=== PATIENT | female | born 2000 | race Caucasian/White ===

== ENCOUNTER 2020-11-08 15:53 | Emergency (ER) | payer OTHER ==
[2020-11-08 16:23] LABS: BASOPHILS % (AUTO) 0.4 %; EOSINOPHILS # (AUTO) 0.1 10^3/uL (0.0-0.7); EOSINOPHILS % (AUTO) 1.1 %; HCT - HEMATOCRIT 36.3 % (37.0-47.0); HGB - HEMOGLOBIN 12.6 g/dL (12.0-16.0); LYMPHOCYTES % (AUTO) 25.1 %; MEAN CORPUSCULAR HEMOGLOBIN 31.2 pg (27.0-31.0); MEAN CORPUSCULAR HGB CONC 34.7 g/dL (32.0-36.0); MEAN CORPUSCULAR VOLUME 89.9 fL (81.0-99.0); MEAN PLATELET VOLUME 9.3 fL (7.9-10.8); MONOCYTES # (AUTO) 0.5 10^3/uL (0.0-1.0); MONOCYTES % (AUTO) 5.8 %; NEUTROPHILS # (AUTO) 5.5 10^3/uL (1.5-6.6); NEUTROPHILS % (AUTO) 67.4 %; PLT - PLATELET COUNT 339 10^3/uL (130-450); RED BLOOD COUNT 4.04 10^6/uL (4.20-5.40); RED CELL DISTRIBUTION WIDTH 11.9 % (12.0-15.0); WHITE BLOOD COUNT 8.1 x10^3/uL (4.8-10.8)
[2020-11-08 16:33] LABS: ALBUMIN 4.6 g/dL (3.2-5.5); ALBUMIN/GLOBULIN RATIO 1.7 (1.0-2.2); BILIRUBIN,TOTAL 0.7 mg/dL (0.2-1.0); CALCIUM 9.5 mg/dL (8.5-10.3); CREATININE 0.7 mg/dL (0.4-1.0); POTASSIUM 4.1 mmol/L (3.5-5.0); TOTAL PROTEIN 7.3 g/dL (6.7-8.2)
--- NOTE | 2020-11-08 16:40 | XRAY Report ---
PROCEDURE: Chest 1 View X-Ray INDICATIONS: Chest pain TECHNIQUE: One view of the chest was acquired. COMPARISON: None FINDINGS: Surgical changes and devices: None. Lungs and pleura: No pleural effusions or pneumothorax. Lungs are clear. Mediastinum: Mediastinal contours appear normal. Heart size is normal. Bones and chest wall: No suspicious bony lesions. Overlying soft tissues appear unremarkable. IMPRESSION: No acute cardiopulmonary findings Reviewed by: Nicolas Garcia MD on 11/08/2020 3:38 PM AKDT Approved by: Nicolas Garcia MD on 11/08/2020 3:38 PM AKDT Station ID: [id number]
--- NOTE | 2020-11-08 16:54 | ED Physician Documentation ---
History of Present Illness - Stated complaint Stated Complaint: RAPID HR,LIGHTHEADED - Chief complaint Chief Complaint: Cardiac - History obtained from History obtained from: Patient - Additonal information Additional information: For the last week or so she had intermittent rapid and hard palpitations and occasional skipped beats. There is no associated chest pain or trouble breathing. No recent travel or pedal edema. She has no history of heart trouble. She had negative thyroid testing done within the last month by her physician per her. Review of Systems Constitutional: denies: Fever, Chills, Myalgias, Fatigue, Weight Loss, Sweats Cardiac: reports: Palpitations. denies: Chest pain / pressure, Pedal edema, Calf pain Respiratory: denies: Dyspnea, Cough PD PAST MEDICAL HISTORY - Present Medications Home Medications: Ambulatory Orders Medication Instructions Recorded Confirmed No Known Home Medications 11/08/20 11/08/20 - Allergies Allergies/Adverse Reactions: Allergies Allergy/AdvReac Type Severity Reaction Status Date / Time No Known Drug Allergies Allergy Verified 11/08/20 15:59 PD ED PE NORMAL - Vitals Vital signs reviewed: Yes - General General: Alert and oriented X 3, No acute distress - HEENT HEENT: PERRL, EOMI - Neck Neck: Supple, no meningeal sign, No bony TTP - Cardiac Cardiac: RRR, No murmur - Respiratory Respiratory: No respiratory distress, Clear bilaterally - Abdomen Abdomen: Non tender - Extremities Extremities: No edema, No calf tenderness / cord - Neuro Neuro: Alert and oriented X 3, Normal speech Results - Vitals Vitals: Vital Signs - 24 hr 11/08/20 15:59 Temperature 36.8 C Heart Rate 81 Respiratory 16 Rate Blood Pressure 142/74 H O2 Saturation 100 Oxygen O2 Source Room air - EKG (time done) 1558 Rate: Rate (enter#) (81) Rhythm: NSR [place]: Normal Intervals: Normal [place] QRS: Normal Ischemia: Normal ST segments - Labs Labs: Laboratory Tests 11/08/20 11/08/20 11/08/20 16:14 16:14 16:14 WBC 8.1 RBC 4.04 L Hgb 12.6 Hct 36.3 L MCV 89.9 MCH 31.2 H MCHC 34.7 RDW 11.9 L Plt Count 339 MPV 9.3 Neut # (Auto) 5.5 Lymph # (Auto) 2.0 [place] # (Auto) 0.5 Eos # (Auto) 0.1 Baso # (Auto) 0.0 Absolute Nucleated RBC 0.00 Nucleated RBC % 0.0 Sodium 136 Potassium 4.1 Chloride 104 Carbon Dioxide 26 Anion Gap 6.0 BUN 13 Creatinine 0.7 Estimated GFR (MDRD) 105 Glucose 105 H Calcium 9.5 Total Bilirubin 0.7 AST 17 ALT 17 Alkaline Phosphatase 51 Troponin I High Sens < 2.3 L Total Protein 7.3 Albumin 4.6 Globulin 2.7 Albumin/Globulin Ratio 1.7 Lipase 33 PD MEDICAL DECISION MAKING - ED course ED course: Young woman has palpitations, per description could be PVCs or SVT. EKG and labs here are normal without arrhythmias or ectopy while being observed. Departure - Departure Disposition: 01 Home, Self Care Clinical Impression: Palpitations Condition: Good Record reviewed to determine appropriate education?: Yes Instructions: ED Palpitations Comments: As discussed, I recommend following up with your physician for consideration for a Holter monitor. Otherwise he can return for new or worsening symptoms.
[2020-11-08 18:46] VITALS: BP 114/73
== END 2020-11-08 17:41 | disposition home or self-care (01) ==
LOC: ED 15:53
DX: R00.2 Palpitations (principal)
CPT/HCPCS: 36415; 80053; 83690; 84484; 85025; 93005; 99284

== ENCOUNTER 2020-11-12 15:05 | Emergency (ER) | payer OTHER ==
--- NOTE | 2020-11-12 15:33 | XRAY Report ---
PROCEDURE: Chest 1 View X-Ray INDICATIONS: Chest pain TECHNIQUE: One view of the chest was acquired. COMPARISON: 11/08/2020 FINDINGS: Surgical changes and devices: None. Lungs and pleura: No pleural effusions or pneumothorax. Lungs are clear. Mediastinum: Mediastinal contours appear normal. Heart size is normal. Bones and chest wall: No suspicious bony lesions. Overlying soft tissues appear unremarkable. IMPRESSION: No acute cardiopulmonary disease process. Reviewed by: Betsy Bragg MD, PhD on 11/12/2020 3:32 PM PDT Approved by: Betsy Bragg MD, PhD on 11/12/2020 3:32 PM PDT Station ID: [id number]
[2020-11-12 15:42] LABS: BASOPHILS % (AUTO) 0.3 %; EOSINOPHILS # (AUTO) 0.1 10^3/uL (0.0-0.7); EOSINOPHILS % (AUTO) 0.7 %; HCT - HEMATOCRIT 36.9 % (37.0-47.0); HGB - HEMOGLOBIN 12.9 g/dL (12.0-16.0); LYMPHOCYTES # (AUTO) 1.7 10^3/uL (1.5-3.5); LYMPHOCYTES % (AUTO) 19.2 %; MEAN CORPUSCULAR HEMOGLOBIN 31.6 pg (27.0-31.0); MEAN CORPUSCULAR VOLUME 90.4 fL (81.0-99.0); MEAN PLATELET VOLUME 9.1 fL (7.9-10.8); MONOCYTES # (AUTO) 0.5 10^3/uL (0.0-1.0); MONOCYTES % (AUTO) 5.9 %; NEUTROPHILS # (AUTO) 6.5 10^3/uL (1.5-6.6); NEUTROPHILS % (AUTO) 73.7 %; PLT - PLATELET COUNT 336 10^3/uL (130-450); RED BLOOD COUNT 4.08 10^6/uL (4.20-5.40); RED CELL DISTRIBUTION WIDTH 11.8 % (12.0-15.0); WHITE BLOOD COUNT 8.8 x10^3/uL (4.8-10.8)
[2020-11-12 15:59] LABS: ALBUMIN 4.9 g/dL (3.2-5.5); ALBUMIN/GLOBULIN RATIO 1.8 (1.0-2.2); CALCIUM 9.5 mg/dL (8.5-10.3); CREATININE 0.9 mg/dL (0.4-1.0); POTASSIUM 3.9 mmol/L (3.5-5.0); TOTAL PROTEIN 7.7 g/dL (6.7-8.2)
--- NOTE | 2020-11-12 17:40 | ED Physician Documentation ---
History of Present Illness - Stated complaint Stated Complaint: LIGHTHEADED,HEART PALPITATIONS - Chief complaint Chief Complaint: Cardiac - Additonal information Additional information: 20-year-old female presents the emergency department for evaluation of feeling "off." She reports that yesterday she was driving a car with her friend and felt like she could not catch her breath for a few minutes. She denies that there was chest pain, abdominal pain, headache or vomiting. But she sometimes feels like she has a racing heart. Past medical history is unremarkable. She takes no prescribed medications. She does use an e-cigarette. No history of DVT or cancer. Not on hormone control. No recent travel or surgeries. No unilateral leg swelling. Review of Systems Constitutional: denies: Fever, Chills Eyes: reports: Reviewed and negative Ears: reports: Reviewed and negative Nose: reports: Reviewed and negative Throat: reports: Reviewed and negative Cardiac: reports: Palpitations. denies: Pedal edema, Calf pain Respiratory: reports: Dyspnea. denies: Cough, Hemoptysis, Wheezing GI: denies: Abdominal Pain, Abdominal Swelling, Nausea, Vomiting : reports: Reviewed and negative Skin: reports: Reviewed and negative Musculoskeletal: reports: Reviewed and negative Neurologic: denies: Generalized weakness, Focal weakness, Numbness, Difficulty speaking, Near syncope, Syncope, Confused, Altered mental status, Unresponsive, Headache, Head injury, LOC PD PAST MEDICAL HISTORY - Past Surgical History Past Surgical History: No - Present Medications Home Medications: Ambulatory Orders Medication Instructions Recorded Confirmed No Known Home Medications 11/08/20 11/08/20 - Allergies Allergies/Adverse Reactions: Allergies Allergy/AdvReac Type Severity Reaction Status Date / Time No Known Drug Allergies Allergy Verified 11/12/20 15:08 - Social History Does the pt smoke?: No Smoking Status: Never smoker Does the pt drink ETOH?: No Does the pt have substance abuse?: No - Immunizations Immunizations are current?: Yes PD ED PE NORMAL - General General: Alert and oriented X 3, No acute distress - HEENT HEENT: PERRL - Neck Neck: Supple, no meningeal sign - Cardiac Cardiac: RRR, No murmur - Respiratory Respiratory: Clear bilaterally - Abdomen Abdomen: Normal bowel sounds, Soft, Non tender, Non distended - Back Back: No CVA TTP, No spinal TTP - Derm Derm: Normal color, Warm and dry, No rash Results - Vitals Vitals: Vital Signs - 24 hr 11/12/20 11/12/20 11/12/20 15:08 17:11 17:33 Temperature 36.6 C Heart Rate 82 82 Heart Rate [ 89 Sitting] Heart Rate [ 92 Standing] Heart Rate [ 76 Supine] Respiratory 16 18 Rate Blood Pressure 145/85 H 114/84 H Blood Pressure 134/76 H [Sitting] Blood Pressure 128/81 H [Standing] Blood Pressure 124/72 [Supine] O2 Saturation 100 100 Oxygen O2 Source Room air - EKG (time done) 1509 Rate: Rate (enter#) (88) Rhythm: NSR [place]: Normal Intervals: Normal [place] QRS: Normal Ischemia: Normal ST segments Compare to prior EKG: Old EKG unavailable Computer interpretation: Agree with computer - Labs Labs: Laboratory Tests 11/12/20 11/12/20 11/12/20 15:34 15:34 15:34 WBC 8.8 RBC 4.08 L Hgb 12.9 Hct 36.9 L MCV 90.4 MCH 31.6 H MCHC 35.0 RDW 11.8 L Plt Count 336 MPV 9.1 Neut # (Auto) 6.5 Lymph # (Auto) 1.7 [place] # (Auto) 0.5 Eos # (Auto) 0.1 Baso # (Auto) 0.0 Absolute Nucleated RBC 0.00 Nucleated RBC % 0.0 Sodium 138 Potassium 3.9 Chloride 104 Carbon Dioxide 24 Anion Gap 10.0 BUN 11 Creatinine 0.9 Estimated GFR (MDRD) 78 L Glucose 86 Calcium 9.5 Total Bilirubin 1.0 AST 17 ALT 17 Alkaline Phosphatase 63 Troponin I High Sens < 2.3 L Total Protein 7.7 Albumin 4.9 Globulin 2.8 Albumin/Globulin Ratio 1.8 Lipase 35 - Rads (name of study) CXR Radiology: Final report received (No acute cardiopulmonary process.) PD MEDICAL DECISION MAKING - ED course Complexity details: reviewed results, re-evaluated patient, d/w patient ED course: 20-year-old female presents the emergency department for the sensation of palpitations especially at night when laying in bed as well as a brief episode of feeling like she couldn't catch her breath yesterday while riding in a car with a friend. Here in the emergency department her clinical exam is entirely unremarkable. Her vital signs including orthostatics have been normal. Screening EKG nonischemic. Screening labs electrolytes and troponin all without any worrisome abnormalities. By PERC and Wells criteria she is low risk and negative for PE therefore defer to D-dimer. I discussed with patient that the sensation of R beating heart can often provoke some anxiety in people. She does not feel with the palpitations that her heart is racing she simply has a sensation of her heart beating at night. She is worried that her blood pressure may be high during these periods. I have encouraged her to buy a home blood pressure monitor and take it at night when she feels a sensation. Otherwise patient will continue to follow-up with her primary care provider. Emergent return precautions were discussed. Departure - Departure Disposition: Home, Self Care Clinical Impression: Intermittent palpitations Condition: Stable Record reviewed to determine appropriate education?: Yes Comments: Alina you're seen in the emergency department today for feeling of shortness of air yesterday as well as the sensation of your heart beating at night when you lay in bed. Your screening EKG, chest x-ray and labs are all essentially unrema rkable. The sensation of her heart beating can cause or provoke anxiety in people. I do recommend that you buy home blood pressure monitor kit and take your blood pressure at night when you are having the sensation to ensure that it is not elevated. If at any point you have fainting episodes develop chest pain, have leg swelling or any other worrisome concerns please return immediately to the emergency department. Otherwise I would like you to schedule a follow-up with your primary care doctor to discuss this emergency department visit. If the sensation of palpitations continue you may benefit from a Holter monitor to be placed to ensure that when you're having these sensations you're not developing an abnormal rhythm.
[2020-11-12 18:16] VITALS: BP 122/75
== END 2020-11-12 18:14 | disposition home or self-care (01) ==
LOC: ED 15:05
DX: R00.2 Palpitations (principal); R06.00 Dyspnea, unspecified; F17.290 Nicotine dependence, other tobacco product, uncomplicated
CPT/HCPCS: 36415; 80053; 83690; 84484; 85025; 93005; 99283; 99284

== ENCOUNTER 2021-06-08 15:57 | Emergency (ER) | payer OTHER ==
[2021-06-08 16:05] VITALS: BP 127/80
[2021-06-08 16:23] LABS: BILIRUBIN,URINE NEGATIVE (NEGATIVE); CLARITY,URINE HAZY (CLEAR); GLUCOSE, URINE (UA) NEGATIVE (NEGATIVE); KETONES,URINE (UA) NEGATIVE (NEGATIVE); LEUKOCYTE ESTERASE, URINE SMALL (NEGATIVE); NITRITE,URINE NEGATIVE (NEGATIVE); OCCULT BLOOD,URINE MODERATE (NEGATIVE); PROTEIN,URINE NEGATIVE (NEGATIVE); UROBILINOGEN,URINE 0.2 (NORMAL) E.U./dL (NORMAL)
[2021-06-08 16:24] LABS: HCG UR QUAL POSITIVE
[2021-06-08 16:36] LABS: BACTERIA,URINE Few /HPF (None Seen); SQUAMOUS EPITHELIAL CELL,UR FEW Squamous (<= Few); WBC CLUMPS,URINE PRESENT; WBC,URINE >25 /HPF (0-5)
[2021-06-08] MEDS ORDERED: cephALEXin 250 MG CAPSULE PO STA (17:52)
--- NOTE | 2021-06-08 17:59 | ED Physician Documentation ---
History of Present Illness - Stated complaint Stated Complaint: FEMALE - Chief complaint Chief Complaint: UTI - Additonal information Additional information: 20-year-old female who is reportedly 15 weeks presents the emergency de partment for evaluation of acute onset dysuria urgency and frequency that began this a.m. No fevers or vomiting. LMP 02/19/2021. She is followed by Dr. Silverman at [facility]. She has had an ultrasound confirming IUP Denies vaginal bleeding or discharge. She has not yet felt movement. Review of Systems Constitutional: reports: Reviewed and negative Ears: reports: Reviewed and negative Throat: reports: Reviewed and negative Cardiac: reports: Reviewed and negative Respiratory: reports: Reviewed and negative : reports: Dysuria, Frequency, Hesitancy, LMP (02/19/2021), Now EGA Skin: reports: Reviewed and negative PD PAST MEDICAL HISTORY - Past Medical History Past Medical History: No - Past Surgical History Past Surgical History: No - Present Medications Home Medications: Ambulatory Orders Medication Instructions Recorded Confirmed cephALEXin [Keflex] 500 mg PO BID #14 cap 06/08/21 - Allergies Allergies/Adverse Reactions: Allergies Allergy/AdvReac Type Severity Reaction Status Date / Time No Known Drug Allergies Allergy Verified 06/08/21 16:02 - Social History Does the pt smoke?: No Smoking Status: Never smoker Does the pt drink ETOH?: No Does the pt have substance abuse?: No - Immunizations Immunizations are current?: Yes PD ED PE NORMAL - General General: Alert and oriented X 3, No acute distress - HEENT HEENT: PERRL - Neck Neck: Supple, no meningeal sign - Cardiac Cardiac: RRR, No murmur - Respiratory Respiratory: Clear bilaterally - Abdomen Abdomen: Normal bowel sounds, Soft, Non tender, Non distended, Other (Quick bedside ultrasound revealed a live IUP with good movement and a heart rate of 170) Results - Vitals Vitals: Vital Signs - 24 hr 06/08/21 16:02 Temperature 36.5 C Heart Rate 86 Respiratory 16 Rate Blood Pressure 127/80 O2 Saturation 100 Oxygen O2 Source Room air - Labs Labs: Laboratory Tests 06/08/21 16:18 Urine Color YELLOW Urine Clarity HAZY Urine pH 6.0 Ur Specific [place] 1.010 Urine Protein NEGATIVE Urine Glucose (UA) NEGATIVE Urine Ketones NEGATIVE Urine Occult Blood MODERATE H Urine Nitrite NEGATIVE Urine Bilirubin NEGATIVE Urine Urobilinogen 0.2 (NORMAL) Ur Leukocyte Esterase SMALL H Urine RBC 11-25 H Urine WBC >25 H Urine WBC Clumps PRESENT Ur Squamous Epith Cells FEW Squamous Urine Bacteria Few Ur Microscopic Review INDICATED Urine Culture Comments INDICATED Urine HCG, Qual POSITIVE PD MEDICAL DECISION MAKING - ED course Complexity details: reviewed results, re-evaluated patient, considered differential, d/w patient ED course: 20-year-old female presents the emergency department for evaluation of dysuria urgency and frequency that began this a.m. She is in her second trimester . LMP 02/19/2021. Limited bedside ultrasound revealed a live IUP with good movement as well as a heart rate of 170. Urine is frankly suggestive of infection. No flank pain fevers or vomiting. I doubt a sending infection or pyelonephritis. Vital signs today are also unremarkable for age. Patient will be started on cephalexin. First dose given here in the emergency department. Advise close follow-up with OB. Emergent return precautions discussed. Departure - Departure Disposition: 01 Home, Self Care Clinical Impression: Acute cystitis during in second trimester Condition: Stable Record reviewed to determine appropriate education?: Yes Instructions: ED UTI Cystitis Female Prescriptions: cephALEXin [Keflex] 500 mg PO BID #14 cap Comments: Alina you do have an infection in your urine. Your first dose of cephalexin and antibiotic was given in the ED. Please fill the prescription and begin taking twice daily starting tomorrow in the morning. The prescription was sent to the [facility] in [place]. It is very important that you discuss this ED visit with your OB. If in any way your symptoms or not improving, you develop fevers have uncontrolled vomiting or severe pain in your belly then please return immediately to the ER for a second evaluation.
== END 2021-06-08 18:09 | disposition home or self-care (01) ==
LOC: ED 15:57
DX: O23.12 Infections of bladder in pregnancy, second trimester (principal); Z3A.15 15 weeks gestation of pregnancy
CPT/HCPCS: 81001; 81025; 87086; 99282; 99283; A9270; 81003

== ENCOUNTER 2021-12-01 15:33 | Outpatient (CLI) | payer OTHER ==
[2021-12-01 16:08] LABS: BASOPHILS % (AUTO) 0.2 %; EOSINOPHILS % (AUTO) 0.3 %; HGB - HEMOGLOBIN 11.6 g/dL (12.0-16.0); LYMPHOCYTES # (AUTO) 1.8 10^3/uL (1.5-3.5); LYMPHOCYTES % (AUTO) 11.3 %; MEAN CORPUSCULAR HEMOGLOBIN 27.5 pg (27.0-31.0); MEAN CORPUSCULAR HGB CONC 32.2 g/dL (32.0-36.0); MEAN CORPUSCULAR VOLUME 85.3 fL (81.0-99.0); MEAN PLATELET VOLUME 9.9 fL (7.9-10.8); MONOCYTES # (AUTO) 0.9 10^3/uL (0.0-1.0); MONOCYTES % (AUTO) 5.8 %; NEUTROPHILS # (AUTO) 12.8 10^3/uL (1.5-6.6); NEUTROPHILS % (AUTO) 81.8 %; PLT - PLATELET COUNT 362 10^3/uL (130-450); RED BLOOD COUNT 4.22 10^6/uL (4.20-5.40); RED CELL DISTRIBUTION WIDTH 13.5 % (12.0-15.0); WHITE BLOOD COUNT 15.6 x10^3/uL (4.8-10.8)
[2021-12-01 16:24] LABS: ALBUMIN/GLOBULIN RATIO 0.9 (1.0-2.2); BILIRUBIN,TOTAL 0.3 mg/dL (0.2-1.0); CALCIUM 9.2 mg/dL (8.5-10.3); CREATININE 0.5 mg/dL (0.4-1.0); POTASSIUM 4.1 mmol/L (3.5-5.0); TOTAL PROTEIN 6.5 g/dL (6.7-8.2); URIC ACID 5.3 mg/dL (2.6-7.2)
[2021-12-01 17:04] LABS: TOTAL PROTEIN,URINE TIMED < 6 mg/dL; TOTAL VOLUME 24HRS,URINE 3050 mL
== END 2021-12-01 15:34 | disposition home or self-care (01) ==
LOC: LAB 15:33
PROVIDERS: ATTEND Midwife
DX: O13.3 Gestational [pregnancy-induced] hypertension without significant proteinuria, third trimester (principal)
CPT/HCPCS: 36415; 80053; 83615; 84156; 84550; 85025

== ENCOUNTER 2021-12-03 14:15 | Outpatient (CLI) | payer OTHER ==
--- NOTE | 2021-12-03 15:52 | Ultrasound Report ---
PROCEDURE: OB Biophysical Profile INDICATIONS: POSTDATES PREGNANC OUTSIDE/PRIOR DATING DATA: Last menstrual period (LMP): 02/09/2021. LMP-based estimated date of delivery (ALE): 11/26/2021. First dating scan (date and location): 07/01/2021. Estimated date of delivery (ALE) from first dating scan: 11/26/2021. The below data below was generated using the ultrasound ALE of 11/26/2021 TECHNIQUE: Real-time scanning was performed of the fetus, with image documentation and biometric manuel surements. Biophysical profile was also obtained. COMPARISON: [facility] 07/01/2021 FINDINGS: General: A single living intrauterine gestation is present. Presentation: Vertex Placenta: Placental position is anterior, without previa. Amniotic fluid index: 17.2 cm, within normal limits for gestational age. Largest pocket 4.9 cm heart rate: 141 beats per minute. Maternal cervical canal: Not well seen cm long; normal length is 2.5 cm or more. biometrics: Estimated gestational age from initial scan: 41 weeks 0 days Biophysical profile: Tone: 2 points. Movement: 2 points. Respiration: 2 points. Largest pocket of fluid: 2 points. Umbilical artery Doppler: 2.0, 2.1, 2.1 IMPRESSION: Single live intrauterine with ultrasound gestational age of 41 weeks 0 days. BPP 8 out of 8. Reviewed by: Susan Hilliard MD on 12/03/2021 3:50 PM PDT Approved by: Susan Hilliard MD on 12/03/2021 3:50 PM PDT Station ID: [id number]
== END 2021-12-03 14:16 | disposition home or self-care (01) ==
LOC: DI 14:15
PROVIDERS: ATTEND Midwife
DX: O48.0 Post-term pregnancy (principal); Z3A.41 41 weeks gestation of pregnancy

== ENCOUNTER 2021-12-12 22:54 | Outpatient (CLI) | payer OTHER | END 2021-12-12 22:55 | disposition critical access hospital (66) | LOC: EMS 22:54 | DX: O16.5 Unspecified maternal hypertension, complicating the puerperium (principal); R42 Dizziness and giddiness | CPT/HCPCS: A0425; A0427 ==

== ENCOUNTER 2021-12-12 23:17 | Emergency (ER) | payer OTHER ==
--- NOTE | 2021-12-12 23:19 | ED Physician Documentation ---
History of Present Illness - Stated complaint Stated Complaint: HIGH BLOOD PRESSURE - History obtained from History obtained from: Patient, EMS - History of Present Illness Timing: Enter time (18:00), Today Pain level max: 0 Pain level now: 0 Improved by: no ameliorating factors Worsened by: no exacerbating factors - Additonal information Additional information: BIBA. Patient is post-, having given 12/07/21 (41 weeks gestation, primagravida, initially induced but then due to "inability to augment" with oxytocin (per [facility] notes)). Patient had [id number], records indicate PIH began approximately 39 weeks into gestation with systolic blood pressures in the 140s, not requiring antihypertensive medication. Tonight at approximately 6 PM, she was sitting up in bed when she developed dizziness/lightheadedness , mild dyspnea. These symptoms prompted her to take her blood pressure and she found that it was high (150 systolic) and was advised to go to ED. she denies headache, abdominal pain, chest pain. She says she has mild nondescript ligththeadedness/diziness. On ROS she says she has mild dyspnea. Review of Systems Constitutional: reports: Reviewed and negative Eyes: reports: Reviewed and negative Cardiac: reports: Reviewed and negative Respiratory: reports: Dyspnea (mild). 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 - Present Medications Home Medications: Ambulatory Orders Medication Instructions Recorded Confirmed cephALEXin [Keflex] 500 mg PO BID #14 cap 06/08/21 Acetaminophen [Acetaminophen Extra 1,000 mg PO Q8H PRN #60 tablet 12/09/21 Strength] Docusate Sodium 100Mg Capsule 100 - 200 mg PO BID PRN #60 cap 12/09/21 [Colace 100Mg Capsule] Ibuprofen [Motrin] 600 mg PO Q6H PRN #30 tab 12/09/21 oxyCODONE [Roxicodone] 2.5 - 5 mg PO Q4H PRN #15 tablet 12/09/21 Labetalol [Trandate] 100 mg PO TID #60 tablet 12/13/21 - Allergies Allergies/Adverse Reactions: Allergies Allergy/AdvReac Type Severity Reaction Status Date / Time No Known Drug Allergies Allergy Verified 12/12/21 23:25 - Living Situation Living Situation: reports: With spouse/s.o. Living Arrangement: reports: At home PD ED PE NORMAL - Vitals Vital signs reviewed: Yes - General General: Alert and oriented X 3, No acute distress, Well developed/nourished - HEENT HEENT: PERRL, EOMI, Moist mucous membranes - Neck Neck: Supple, no meningeal sign - Cardiac Cardiac: RRR, No murmur - Respiratory Respiratory: No respiratory distress, Clear bilaterally - Abdomen Abdomen: Soft, Non tender, No organomegaly, Other (transverse incision site is c/d/i with strips in place) - Neuro Neuro: Alert and oriented X 3 Results - Vitals Vitals: Oxygen O2 Source Room air - Labs Labs: Laboratory Tests 12/12/21 12/12/21 12/12/21 23:50 23:55 23:55 WBC 15.2 H RBC 2.94 L Hgb 7.9 L Hct 25.1 L MCV 85.4 MCH 26.9 L MCHC 31.5 L RDW 14.5 Plt Count 438 MPV 9.1 Neut # (Auto) 11.7 H Lymph # (Auto) 2.0 [place] # (Auto) 0.9 Eos # (Auto) 0.3 Baso # (Auto) 0.1 Absolute Nucleated RBC 0.02 Nucleated RBC % 0.1 Sodium 138 Potassium 3.8 Chloride 105 Carbon Dioxide 24 Anion Gap 9.0 BUN 13 Creatinine 0.7 Estimated GFR (MDRD) 104 Glucose 98 Calcium 9.1 Total Bilirubin < 0.2 L AST 17 ALT 18 Alkaline Phosphatase 113 Total Protein 6.9 Albumin 2.9 L Globulin 4.0 Albumin/Globulin Ratio 0.7 L Lipase 35 Urine Color YELLOW Urine Clarity HAZY Urine pH 6.0 Ur Specific [place] <=1.005 Urine Protein TRACE Urine Glucose (UA) NEGATIVE Urine Ketones NEGATIVE Urine Occult Blood LARGE H Urine Nitrite NEGATIVE Urine Bilirubin NEGATIVE Urine Urobilinogen 0.2 (NORMAL) Ur Leukocyte Esterase LARGE H Urine RBC 11-25 H Urine WBC 11-25 H Ur Squamous Epith Cells MOD Squamous H Urine Bacteria Few Ur Microscopic Review INDICATED Urine Culture Comments NOT INDICATED PD MEDICAL DECISION MAKING - ED course Complexity details: reviewed old records, reviewed results, re-evaluated patient, considered differential, d/w patient ED course: presents with high blood pressure readings consistently high in ED over few hours although slowly trended down during stay (but not normalized). Initial readings were 170s / 110s , eventually 150s-160s/80s-90s late in stay. No significant symptoms to correlate with the hypertension. Post- preeclampsia considered, although per Up To Date, patient meets blood pressure criteria but would ALSO REQUIRE one or more from a list of criteria of which patient meets none. I discussed the case with Dr. Josue , gas station manager rn forensic, and she recommends labetalol for BP control but otherwise patient is safe and appropriate for d/c home. She recommends labetalol 100 mg PO TID with parameters regarding taking doses according to bp readings as well as readings that would indicate a second (early) dose; I put these instructions into patient's discharge instructions and reviewed them with patient. Patient is in NAD and results reviewed with her and she is comfortable with d/c home, will pursue early follow up, return precautions discussed Departure - Departure Disposition: Home, Self Care Clinical Impression: Hypertension Qualifiers: Hypertension type: unspecified Qualified Code(s): I10 - Essential (primary) hypertension Condition: Good Instructions: ED Hypertension New Begin Tx Follow-Up: Roberto Abarca MD [Provider Admit Priv/Credential] - Prescriptions: Labetalol [Trandate] 100 mg PO TID #60 tablet Comments: Your blood pressures were high on tonight's ER visit. The tests performed tonight have reassuring results. I discussed your case with Dr. Lacy (gas station manager rn forensic), recommendations are as follows: You are being prescribed labetalol which is used to control high blood pressures. A prescription has been electronically submitted to [facility] pharmacy in [place]. Take your blood pressure three times per day BEFORE each dose of the labetalol. If your blood pressure is above 140 systolic (top number) OR above 90 diastolic (bottom number), take the dose of labetalol. If neither of these numbers is at or above these numbers, you can skip that dose of labetalol. Take your blood pressure thirty minutes after each dose of labetalol. If the repeat (30 minute) blood pressure is above 160 systolic OR above 100 diastolic, take a second dose of labetalol. If the repeat blood pressure is below 160 systolic AND below 100 diastolic, you do not need to take the repeat dose of labetalol. If you develop headache, visual changes, upper abdominal pain, or shortness of breath, you should call 911. Discharge Date/Time: 12/13/21 02:59
[2021-12-13 00:02] LABS: BASOPHILS # (AUTO) 0.1 10^3/uL (0.0-0.1); BASOPHILS % (AUTO) 0.4 %; EOSINOPHILS # (AUTO) 0.3 10^3/uL (0.0-0.7); EOSINOPHILS % (AUTO) 2.1 %; HCT - HEMATOCRIT 25.1 % (37.0-47.0); HGB - HEMOGLOBIN 7.9 g/dL (12.0-16.0); LYMPHOCYTES % (AUTO) 13.2 %; MEAN CORPUSCULAR HEMOGLOBIN 26.9 pg (27.0-31.0); MEAN CORPUSCULAR HGB CONC 31.5 g/dL (32.0-36.0); MEAN CORPUSCULAR VOLUME 85.4 fL (81.0-99.0); MEAN PLATELET VOLUME 9.1 fL (7.9-10.8); MONOCYTES # (AUTO) 0.9 10^3/uL (0.0-1.0); MONOCYTES % (AUTO) 5.8 %; NEUTROPHILS # (AUTO) 11.7 10^3/uL (1.5-6.6); NEUTROPHILS % (AUTO) 77.3 %; NRBC ABSOLUTE COUNT (AUTO) 0.02 x10^3/uL; NUCLEATED RED BLOOD CELLS AUTO 0.1 /100WBC; PLT - PLATELET COUNT 438 10^3/uL (130-450); RED BLOOD COUNT 2.94 10^6/uL (4.20-5.40); RED CELL DISTRIBUTION WIDTH 14.5 % (12.0-15.0); WHITE BLOOD COUNT 15.2 x10^3/uL (4.8-10.8)
[2021-12-13 00:05] LABS: BILIRUBIN,URINE NEGATIVE (NEGATIVE); GLUCOSE, URINE (UA) NEGATIVE (NEGATIVE); KETONES,URINE (UA) NEGATIVE (NEGATIVE); LEUKOCYTE ESTERASE, URINE LARGE (NEGATIVE); NITRITE,URINE NEGATIVE (NEGATIVE); OCCULT BLOOD,URINE LARGE (NEGATIVE); PROTEIN,URINE TRACE mg/dL (NEGATIVE); UROBILINOGEN,URINE 0.2 (NORMAL) E.U./dL (NORMAL)
[2021-12-13 00:06] LABS: CLARITY,URINE HAZY (CLEAR)
[2021-12-13 00:14] LABS: ALBUMIN 2.9 g/dL (3.2-5.5); ALBUMIN/GLOBULIN RATIO 0.7 (1.0-2.2); ALKALINE PHOSPHATASE 113 IU/L (42-121); ALT ALANINE AMINOTRANSFERASE 18 IU/L (10-60); AST ASPARTATE AMINOTRANSFERASE 17 IU/L (10-42); BILIRUBIN,TOTAL < 0.2 mg/dL (0.2-1.0); BUN - BLOOD UREA NITROGEN 13 mg/dL (6-20); CALCIUM 9.1 mg/dL (8.5-10.3); CARBON DIOXIDE - CO2 24 mmol/L (21-32); CHLORIDE 105 mmol/L (101-111); CREATININE 0.7 mg/dL (0.4-1.0); GFR - MDRD 104 (>89); GLUCOSE 98 mg/dL (70-100); LIPASE 35 U/L (22-51); POTASSIUM 3.8 mmol/L (3.5-5.0); SODIUM 138 mmol/L (135-145); TOTAL PROTEIN 6.9 g/dL (6.7-8.2)
[2021-12-13 00:14] LABS: BACTERIA,URINE Few /HPF (None Seen); SQUAMOUS EPITHELIAL CELL,UR MOD Squamous (<= Few)
[2021-12-13] MEDS ORDERED: LABETALOL 100 MG TABLET PO STA (02:30)
[2021-12-13 03:01] VITALS: BP 148/86
== END 2021-12-13 02:59 | disposition home or self-care (01) ==
LOC: EDUNIT# → ED 23:17
DX: O16.5 Unspecified maternal hypertension, complicating the puerperium (principal)
CPT/HCPCS: 36415; 80053; 81001; 83690; 85025; 99283; A9270; 81003; 87086

== ENCOUNTER 2023-01-12 10:26 | Outpatient (CLI) | payer OTHER ==
[2023-01-12 10:43] LABS: BASOPHILS % (AUTO) 0.4 %; EOSINOPHILS # (AUTO) 0.1 10^3/uL (0.0-0.7); EOSINOPHILS % (AUTO) 0.8 %; HCT - HEMATOCRIT 37.2 % (37.0-47.0); HGB - HEMOGLOBIN 12.8 g/dL (12.0-16.0); LYMPHOCYTES # (AUTO) 2.4 10^3/uL (1.5-3.5); LYMPHOCYTES % (AUTO) 25.6 %; MEAN CORPUSCULAR HEMOGLOBIN 29.6 pg (27.0-31.0); MEAN CORPUSCULAR HGB CONC 34.4 g/dL (32.0-36.0); MEAN CORPUSCULAR VOLUME 85.9 fL (81.0-99.0); MEAN PLATELET VOLUME 9.2 fL (7.9-10.8); MONOCYTES # (AUTO) 0.5 10^3/uL (0.0-1.0); MONOCYTES % (AUTO) 5.2 %; NEUTROPHILS # (AUTO) 6.3 10^3/uL (1.5-6.6); NEUTROPHILS % (AUTO) 67.8 %; PLT - PLATELET COUNT 334 10^3/uL (130-450); RED BLOOD COUNT 4.33 10^6/uL (4.20-5.40); RED CELL DISTRIBUTION WIDTH 13.7 % (12.0-15.0); WHITE BLOOD COUNT 9.3 x10^3/uL (4.8-10.8)
[2023-01-12 11:00] LABS: ALBUMIN 4.1 g/dL (3.2-5.5); ALBUMIN/GLOBULIN RATIO 1.3 (1.0-2.2); ALKALINE PHOSPHATASE 71 IU/L (42-121); ALT ALANINE AMINOTRANSFERASE 19 IU/L (10-60); AST ASPARTATE AMINOTRANSFERASE 17 IU/L (10-42); BILIRUBIN,TOTAL 0.7 mg/dL (0.2-1.0); BUN - BLOOD UREA NITROGEN 14 mg/dL (6-20); CALCIUM 8.7 mg/dL (8.5-10.3); CARBON DIOXIDE - CO2 24 mmol/L (21-32); CHLORIDE 108 mmol/L (101-111); CHOL/HDL RATIO 2.1 (<4.4); CHOLESTEROL 134 mg/dL; CREATININE 0.7 mg/dL (0.4-1.0); GFR - MDRD 103 (>89); GLUCOSE 90 mg/dL (70-100); HDL CHOLESTEROL 63 mg/dL; POTASSIUM 3.8 mmol/L (3.5-5.0); SODIUM 137 mmol/L (135-145); TOTAL PROTEIN 7.2 g/dL (6.7-8.2); TRIGLYCERIDES 33 mg/dL
[2023-01-12 11:13] LABS: THYROID STIMULATING HORMONE 1.23 uIU/mL (0.34-5.60)
[2023-01-12 11:15] LABS: FREE T3 3.52 pg/mL (2.5-3.9); FREE T4 (FREE THYROXINE) 0.97 ng/dL (0.58-1.64)
== END 2023-01-12 10:27 | disposition home or self-care (01) ==
LOC: LAB 10:26
PROVIDERS: ATTEND Physician Assistant
DX: Z13.9 Encounter for screening, unspecified (principal); Z83.49 Family history of other endocrine, nutritional and metabolic diseases
CPT/HCPCS: 36415; 80053; 80061; 83721; 84439; 84443; 84481; 85025

== ENCOUNTER 2023-02-25 17:00 | Outpatient (CLI) | payer OTHER, MEDICAID | END 2023-02-25 17:15 | disposition home or self-care (01) | LOC: LAB.N 17:00 | PROVIDERS: ATTEND Physician Assistant Medical | DX: N30.00 Acute cystitis without hematuria (principal) | CPT/HCPCS: 87086 ==

== ENCOUNTER 2023-03-02 11:00 | Outpatient (CLI) | payer OTHER, MEDICAID ==
[2023-03-02 18:52] LABS: BILIRUBIN,URINE NEGATIVE (NEGATIVE); GLUCOSE, URINE (UA) NEGATIVE (NEGATIVE); KETONES,URINE (UA) NEGATIVE (NEGATIVE); LEUKOCYTE ESTERASE, URINE NEGATIVE (NEGATIVE); NITRITE,URINE NEGATIVE (NEGATIVE); OCCULT BLOOD,URINE NEGATIVE (NEGATIVE); PH,URINE 5.5 PH (5.0-7.5); PROTEIN,URINE NEGATIVE (NEGATIVE); UROBILINOGEN,URINE 0.2 (NORMAL) E.U./dL (NORMAL)
[2023-03-02 18:54] LABS: CLARITY,URINE CLEAR (CLEAR)
[2023-03-02 20:00] LABS: BACTERIA,URINE None Seen /HPF (None Seen); RBC,URINE None Seen /HPF (0-5); SQUAMOUS EPITHELIAL CELL,UR NONE SEEN (<= Few); WBC,URINE 0-3 /HPF (0-5)
[2023-03-02 22:33] LABS: BACTERIAL VAGINOSIS DNA NEGATIVE (NEGATIVE); CANDIDA GLABRATA DNA NEGATIVE (NEGATIVE); CANDIDA GROUP DNA NEGATIVE (NEGATIVE); CANDIDA KRUSEI DNA NEGATIVE (NEGATIVE); TRICHOMONAS VAGINALIS DNA NEGATIVE (NEGATIVE)
== END 2023-03-02 11:15 | disposition home or self-care (01) ==
LOC: LAB.N 11:00
PROVIDERS: ATTEND Emergency Medicine
DX: R30.0 Dysuria (principal)
CPT/HCPCS: 81001; 81514; 87086

== ENCOUNTER 2023-08-12 10:31 | Outpatient (CLI) | payer OTHER, MEDICAID ==
[2023-08-12 12:14] LABS: BASOPHILS % (AUTO) 0.3 %; EOSINOPHILS # (AUTO) 0.1 10^3/uL (0.0-0.7); EOSINOPHILS % (AUTO) 0.5 %; HCT - HEMATOCRIT 39.4 % (37.0-47.0); HGB - HEMOGLOBIN 12.9 g/dL (12.0-16.0); LYMPHOCYTES # (AUTO) 3.8 10^3/uL (1.5-3.5); LYMPHOCYTES % (AUTO) 29.7 %; MEAN CORPUSCULAR HGB CONC 32.7 g/dL (32.0-36.0); MEAN CORPUSCULAR VOLUME 91.6 fL (81.0-99.0); MEAN PLATELET VOLUME 9.3 fL (7.9-10.8); MONOCYTES # (AUTO) 0.8 10^3/uL (0.0-1.0); NEUTROPHILS # (AUTO) 8.2 10^3/uL (1.5-6.6); NEUTROPHILS % (AUTO) 63.1 %; PLT - PLATELET COUNT 437 10^3/uL (130-450); RED CELL DISTRIBUTION WIDTH 13.1 % (12.0-15.0); WHITE BLOOD COUNT 12.9 x10^3/uL (4.8-10.8)
[2023-08-12 12:51] LABS: FERRITIN 14.6 ng/mL (11.0-306.8)
== END 2023-08-12 10:32 | disposition home or self-care (01) ==
LOC: LAB.N 10:31
PROVIDERS: ATTEND Physician Assistant
DX: K14.0 Glossitis (principal)
CPT/HCPCS: 36415; 82607; 82728; 82746; 83540; 84466; 85025

== ENCOUNTER 2023-09-24 16:08 | Outpatient (CLI) | payer OTHER, MEDICAID ==
[2023-09-24 21:10] LABS: HCG,QUALITATIVE BLOOD POSITIVE
== END 2023-09-24 16:09 | disposition home or self-care (01) ==
LOC: LAB.N 16:08
PROVIDERS: ATTEND Physician Assistant
DX: Z33.1 Pregnant state, incidental (principal)
CPT/HCPCS: 36415; 84703